=== PATIENT | female | born 1970 | race African-American/Black ===

== ENCOUNTER 2021-06-17 23:18 | Emergency (ER) | payer OTHER, SELFPAY ==
--- NOTE | ~2021-06-17 | XR_ITS ---
EXAMINATION: XR chest 2V DATE: 06/18/2021 01:14 INDICATION: Near syncope. TECHNIQUE: Frontal and lateral views of the chest were obtained. COMPARISON: None. FINDINGS: There is no pneumonia, pleural effusion, or pneumothorax. Cardiomegaly is noted. IMPRESSION: 1. Cardiomegaly. Reviewed, dictated and finalized at location A. IMPRESSION: 1. Cardiomegaly.
--- NOTE | 2021-06-17 23:20 | ECG_ITS ---
Measurements Intervals [place] Rate: 73 P: -4 VA: 192 QRS: -9 QRSD: 100 T: -25 QT: 397 QTc: 440 Interpretive Statements SINUS RHYTHM VOLTAGE CRITERIA FOR LVH [MEETS CRITERIA IN ONE OF: R(aVL), S(V1), R(V5), R(V5/V6)+S(V1)] NONSPECIFIC T-WAVE ABNORMALITY ABNORMAL ECG NO PREVIOUS ECG AVAILABLE FOR COMPARISON Electronically Signed On 06-18-2021 11:18:16 CDT by Suresh Chavez M.D.
[2021-06-17 23:30] VITALS: BP 220/110; PULSE 82; RESP 18; TEMP 36.7; O2SAT 98
--- NOTE | 2021-06-17 23:40 | ED.GENADULT ---
HPI - General Adult General Chief complaint: Syncope Stated complaint: syncopal episode for 20 sec Time Seen by Provider: 06/17/21 23:27 Source: patient, EMS and RN notes reviewed Mode of arrival: EMS Limitations: no limitations History of Present Illness HPI narrative: 50-year-old female with hsx of HTN presenting to the emergency department for evaluation after having a near syncopal episode at work. Patient states over the last few days she has had increased generalized fatigue, body aches and sore throat. Patient denies any current chest pain or shortness of breath. Patient was at work today and states that she had a syncopal episode where she went down to the ground but denies striking her head denies any pain or injury. Patient states that she has not eaten very well today. Patient is a diabetic. Related Data Allergies Allergy/AdvReac Type Severity Reaction Status Date / Time azithromycin Allergy Swelling Verified 06/17/21 23:42 Penicillins Allergy Rash Verified 06/17/21 23:42 vancomycin Allergy Swelling Verified 06/17/21 23:42 Review of Systems Review of Systems: CONSTITUTIONAL: fatigue and myalgia EYES: Denies visual changes, redness, or discharge. ENT: Denies rhinorrhea, congestion, sore throat, or otalgia. CARDIOVASCULAR: Denies chest pain, palpitations, or edema. RESPIRATORY: Denies cough or dyspnea. GASTROINTESTINAL: Denies abdominal pain, nausea, vomiting, or diarrhea. GENITOURINARY: Denies dysuria or hematuria. SKIN: Denies rash or itching. MUSCULOSKELETAL: Denies back pain, joint pain, or myalgia. NEUROLOGIC: Denies headache, numbness, or weakness. reports near syncope Exam Narrative: APPEARANCE: Well appearing, no pain, no distress, well-nourished. HEAD: normocephalic, atraumatic. EYES: PERRLA/EOMI, conjunctivae clear. NOSE: Normal no drainage THROAT: Pharynx clear, no exudate. NECK: Supple. No adenopathy, no masses. RESPIRATORY: Airway patent, respirations nonlabored. Clear to auscultation bilaterally, no rales, rhonchi, wheezing. CARDIOVASCULAR: Regular rate and rhythm without murmurs rubs or gallops. ABDOMINAL: Soft, nontender, nondistended, normal bowel sounds MUSCULOSKELETAL: Moves all extremities. Strength/ROM intact, No edema, No calf tenderness. NEURO: Alert. Cranial nerves II through XII intact. grossly intact SKIN: Warm, dry. Normal Color Course Course Emergency Course: Patient reports he does still have some body aches. Patient was negative for influenza and for Covid. Strep was also negative. Patient describes a vasovagal syncope. This may be due to dehydration and underlying viral illness. Patient denies any headache chest pain or shortness of breath. Patient was updated on the importance having close follow-up with her primary care physician and on reasons to return to the emergency department. Vital Signs Vital signs: Vital Signs Temperature 98.1 F 06/17/21 23:30 Pulse Rate 82 06/17/21 23:30 Respiratory Rate 18 06/17/21 23:30 Blood Pressure 220/110 H 06/17/21 23:30 Pulse Oximetry 98 06/17/21 23:30 Temperature 98.1 F 06/17/21 23:30 Pulse Rate 82 06/18/21 03:10 Respiratory Rate 18 06/18/21 03:10 Blood Pressure 188/101 H 06/18/21 03:10 Pulse Oximetry 99 06/18/21 03:10 Medical Decision Making Vital Signs Vital Signs: Vital Signs Temperature 98.1 F 06/17/21 23:30 Pulse Rate 82 06/17/21 23:30 Respiratory Rate 18 06/17/21 23:30 Blood Pressure 220/110 H 06/17/21 23:30 Pulse Oximetry 98 06/17/21 23:30 Temperature 98.1 F 06/17/21 23:30 Pulse Rate 82 06/18/21 03:10 Respiratory Rate 18 06/18/21 03:10 Blood Pressure 188/101 H 06/18/21 03:10 Pulse Oximetry 99 06/18/21 03:10 Lab Data Lab results reviewed: Yes I reviewed the patient's lab results. Result diagrams: 06/17/21 23:48 06/17/21 23:48 Labs: Lab Results 06/17/21 06/17/21 06/17/21 Range/Units 23:39 23:48 23:48 WBC 5.6 (4
[2021-06-17 23:42] LABS: Glucose Point of Care 120 mg/dl (65-105)
[2021-06-17 23:53] LABS: Basophils Percent Auto 0.4 % (0.2-1.2); Eosinophils Percent Auto 0.7 % (0-4.4); Hematocrit 38.7 % (37.0-47.0); Hemoglobin 12.3 g/dL (12.0-15.0); Immature Granulocyte Absolute 0.02 K/mm3 (0.00-0.031); Immature Granulocyte Percent A 0.4 % (0-0.5); Lymphocytes Absolute Auto 1.56 K/mm3 (0.9-3.2); Lymphocytes Percent Auto 27.7 % (18.3-44.2); Mean Corpuscular HGB Conc 31.8 g/dl (32-36); Mean Corpuscular Hemoglobin 28.3 pg (26-34); Mean Corpuscular Volume 89.2 fl (80-100); Mean Platelet Volume 12.2 fl (7.4-10.4); Monocytes Absolute Auto 0.5 K/mm3 (0.1-0.6); Monocytes Percent Auto 8.5 % (2.6-8.5); Neutrophils Absolute Auto 3.5 K/mm3 (1.3-6.7); Neutrophils Percent Auto 62.3 % (45.5-73.1); Platelet Count Result 181 k/mm3 (150-375); Red Blood Count 4.34 M/mm3 (4.2-5.4); Red Cell Distribution Width 14.4 % (11.5-14.5); White Blood Count 5.6 K/mm3 (4.5-10.0)
[2021-06-18] VITALS (8 sets, daily range): BP systolic 177–222; BP diastolic 76–108; PULSE 70–84; RESP 14–22; O2SAT 99–100
[2021-06-18 00:04] LABS: Alanine Aminotransferase 41 U/L (4-35); Albumin Level 4.1 g/dL (3.5-5.1); Alkaline Phosphatase 81 U/L (38-126); Anion Gap 5 mmol/L (8-16); Aspartate Amino Transferase 34 U/L (14-36); Bilirubin,Total 0.4 mg/dL (0.2-1.3); Blood Urea Nitrogen 21 mg/dL (7-17); Calcium 9.1 mg/dL (8.4-10.2); Carbon Dioxide 31 mmol/L (22-30); Chloride 105 mmol/L (98-107); Estimated Glomerular Filt Rate > 60; Glucose 116 mg/dL (65-110); Potassium 3.6 mmol/L (3.4-5.0); Sodium 141 mmol/L (137-145)
[2021-06-18] MEDS: hydrALAZINE HCL 20 MG/ML VIAL 10 MG IV PUSH (00:12)
[2021-06-18 00:54] LABS: Influenza A QL RT-PCR Negative (Negative); Influenza B QL RT-PCR Negative (Negative); SARS-CoV-2 RNA PCR Negative
== END 2021-06-18 03:13 | disposition home or self-care (01) ==
PROVIDERS: Emergency Provider Emergency Medicine
DX: R55 Syncope and collapse (principal); R53.83 Other fatigue; M79.10 Myalgia, unspecified site; Z20.822 Contact with and (suspected) exposure to COVID-19; R94.31 Abnormal electrocardiogram [ECG] [EKG]
CPT/HCPCS: 36415; 71046; 80053; 82948; 85025; 87081; 87502; 87880; 93005; 96374; 99284; C9803; J0360; U0003; U0005